=== PATIENT | male | born 1945 | race Caucasian/White ===

== ENCOUNTER → 2018-05-19 | Outpatient (CLI) | payer OTHER ==
--- NOTE | 2018-05-19 13:19 | PCVCIMAG ---
APPROVED REPORT Study performed: 05/19/2018 10:53:30 Exam: Stress Echocardiogram Indication: CAD s/p CABG,PCI Patient Location: Echo lab Stress Nurse: Camilla Tesfaye RN Room #: 2 Status: routine Ht: 5 ft 11 in HR: 69 bpm BP: 132/88 mmHg Rhythm: NSR Medical History Medical History: CAD s/p CABG, CAD s/p stent, Hyperlipidemia, Tobacco history (Current/Recent) Medications: Carvedilol Cardiac Risk Factors: Tobacco History (Current/Recent), Hyperlipidemia Previous Cardiac Procedures: CABG,PCI,Myocardial infarction Pretest Chest Pain Characteristics: No chest pain Exercise History: Sedentary Procedure The patient underwent an Exercise Stress Test using the Baljinder Protocol. Blood pressure, heart rate, and EKG were monitored. An Echocardiogram was performed by proof technician helper in four stages in quad fashion. At peak stress, four selected images were obtained and placed side by side with resting images for comparison. Stress Test Details Stress Test: Exercise stress testing was performed using a Baljinder protocol. HR Resting HR: 69 bpmMax Heart Rate (APMHR): 149 bpm Max HR Achieved: 151 bpmTarget HR (85% APMHR): 126 bpm % of APMHR: 101 Recovery HR: 85 bpm HR response to stress: Normal HR response to stress BP Resting BP: 132/88 mmHg Max BP: 170/80 mmHg Recovery BP: 130/70 mmHg BP response to stress: Normal blood pressure response to stress. ECG Resting ECG: Sinus Rhythm, rightward axis Stress ECG: Sinus Rhythm, NSSTT changes ST Change: non diagnostic Arrhythmia: Rare PVCs Recovery ECG: Sinus Rhythm, NSSTT changes Recovery ST Change: Non-ischemic Recovery Arrhythmia: Rare PVCs Clinical Reason for Termination: Maximal effort Stress Symptoms: fatigue Exercise duration: 9 min 03 sec Highest Stage Achieved: Stage 3: 3.4 mph at 14% grade. Exercise capacity: 10.1 METs Overall Exercise Capacity for Age: Normal Scale: Sedentary Angina Score: None No complications. Stress ECG Conclusion The patient exercised according to the BALJINDER protocol for 9:03 mins; achieving a work level of 10.1 METS. The resting heart rate of 69 bpm davis to a maximum heart rate of 151 bpm. This value represent 101% of the maximal, age-predicted heart rate. The resting blood pressure of 132/88 mmHg, davis to a maximum blood pressure of 170/80 mmHg. The exercise test was stopped due to fatigue. Pre-Stress Echo The resting Echocardiogram showed normal left ventricular contractility with an estimated Ejection Fraction of about 50-55%. Normal wall motion in all segments on baseline images.Fixed defect seen in basal inferoseptal wall. Post-Stress Echo The stress Echocardiogram showed normal left ventricular contractility with an estimated Ejection Fraction of about 55-60%. Normal augmentation of wall motion in all segments on post stress images except as noted above. Fixed defect in the basal inferoseptal. Conclusion Clinical Response: Non-ischemic Exercise Capacity: Average Stress ECG Response: Non-ischemic Stress Echo Images: Non-ischemic No echocardiographic evidence for exercise induced ischemia. Normal stress echocardiogram with maximal exercise stress. Normal stress echocardiogram with maximal exercise stress. 1. Low risk study <Conclusion> No echocardiographic evidence for exercise induced ischemia. Normal stress echocardiogram with maximal exercise stress. Normal stress echocardiogram with maximal exercise stress. 1. Low risk study
== END | disposition home or self-care (01) ==
LOC: PCVCIMAG 10:57
PROVIDERS: ATTEND Internal Medicine
DX: I25.10 Atherosclerotic heart disease of native coronary artery without angina pectoris (principal); E78.5 Hyperlipidemia, unspecified; Z95.1 Presence of aortocoronary bypass graft
CPT/HCPCS: 93325; 93351